=== PATIENT | male | born 1965 | race Caucasian/White ===

== ENCOUNTER 2017-05-28 10:45 | Emergency (ER) | payer BC ==
[~2017-05-28] VITALS: Ht 182.9 cm; Wt 110.4 kg
[~2017-05-28 10:45] MED LIST: CARI250T PO; LORA0.5T PO; METH27TA7 PO; TRAM50TA2 PO; VENL-190 PO
[2017-05-28] MEDS ORDERED: diphenhydrAMINE 25mg capsule PO ONE (11:30)
[2017-05-28] MEDS ORDERED: proCHLORperazine 10mg tablet PO ONE (11:30)
[2017-05-28] MEDS ORDERED: ketorolac trometh inj. 60 MG/2 ML VIAL IM ONE (11:30)
[2017-05-28 11:47] VITALS: BP 150/91
== END 2017-05-28 11:49 | disposition home or self-care (01) ==
LOC: ER 10:46
DX: S06.0X0A Concussion without loss of consciousness, initial encounter (principal); G89.29 Other chronic pain; Z90.49 Acquired absence of other specified parts of digestive tract; Z98.890 Other specified postprocedural states; Z88.2 Allergy status to sulfonamides; Z88.5 Allergy status to narcotic agent; Z79.899 Other long term (current) drug therapy; W01.0XXA Fall on same level from slipping, tripping and stumbling without subsequent striking against object, initial encounter; Y93.89 Activity, other specified; Y92.89 Other specified places as the place of occurrence of the external cause; Y99.8 Other external cause status
CPT/HCPCS: 96372; 99283; J1885; Q0163; Q0164

== ENCOUNTER 2019-06-10 17:03 | Emergency (ER) | payer MEDICAID, OTHER ==
[~2019-06-10] VITALS: Ht 188 cm; Wt 105.0 kg
[2019-06-10] MEDS ORDERED: ketorolac trometh. 30mg/ml inj. IM STA (17:40)
[2019-06-10] MEDS ORDERED: oxyCODONE/APAP 5-325mg tablet PO ONE (17:40)
[2019-06-10] MEDS ORDERED: oxyCODONE/APAP 10/325mg tablet PO ONE (18:05)
[2019-06-10 19:46] VITALS: BP 120/82
== END 2019-06-10 19:45 | disposition home or self-care (01) ==
LOC: ER 17:03
DX: M25.551 Pain in right hip (principal); G89.29 Other chronic pain; F41.9 Anxiety disorder, unspecified; F10.99 Alcohol use, unspecified with unspecified alcohol-induced disorder; Z90.49 Acquired absence of other specified parts of digestive tract; Z98.890 Other specified postprocedural states; Z88.2 Allergy status to sulfonamides; Z88.5 Allergy status to narcotic agent; Z79.899 Other long term (current) drug therapy; Y90.9 Presence of alcohol in blood, level not specified
CPT/HCPCS: 73700; 99284